=== PATIENT | male | born 1985 | race Caucasian/White ===

== ENCOUNTER 2017-11-18 16:33 | Emergency (ER) | payer OTHER, BC ==
[~2017-11-18] VITALS: Ht 180.3 cm; Wt 84.0 kg
[2017-11-18 16:40] VITALS: Ht 180.3 cm; Wt 84.0 kg
--- NOTE | 2017-11-18 17:11 | DIAGNOSTIC IMAGING REPORT ---
L ANKLE MIN 3 VIEWS ROUTINE CLINICAL HISTORY: twisting injury to foot and ankle, eval fx COMPARISON: None FINDINGS: Alignment of the left ankle is anatomic. Talar dome is intact. There is no acute fracture. IMPRESSION: No acute fracture or dislocation within the left ankle. Electronically signed by: Kristofer Washington M.D. 11/18/2017 5:10 PM Dictated Date/Time: 11/18/2017 5:09 PM
--- NOTE | 2017-11-18 17:14 | DIAGNOSTIC IMAGING REPORT ---
L FOOT MIN 3 VIEWS ROUTINE CLINICAL HISTORY: twisting injury to foot and ankle, eval fx COMPARISON: None FINDINGS: Tarsometatarsal joints are intact. Alignment of the left foot is anatomic. No acute fracture is identified. Joint spaces are preserved. IMPRESSION: No acute fracture or dislocation within the left foot. Electronically signed by: Kristofer Washington M.D. 11/18/2017 5:13 PM Dictated Date/Time: 11/18/2017 5:10 PM
--- NOTE | 2017-11-18 17:20 | EMERGENCY ROOM VISIT NOTE ---
ED Visit Note First contact with patient: 16:47 CHIEF COMPLAINT: Ankle pain HISTORY OF PRESENT ILLNESS: This 32-year-old male patient presents to the emergency department by private vehicle after sustaining an injury to the left ankle and foot with a twisting, inversion motion around 2:30 PM today. 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 The patient complains of pain along the outside of the ankle. The patient also complains of pain across top of the foot. The patient rates the pain as throbbing and 6/10. The patient is able to bear weight on the foot. Constant pain, worse with movement, weight bearing, and the dependent position. No knee pain, the patient is able to move their toes. No numbness or weakness of the foot, no laceration. The patient has not had a previous fracture to this ankle. The patient has taken no medications for the pain. The patient denies any other injury. REVIEW OF SYSTEMS: A 6 system review of systems was completed with positives and pertinent negatives listed in the HPI. ALLERGIES: Reviewed in chart, see below. MEDICATIONS: No current medications. PMH: No significant past medical or surgical history. SOCIAL HISTORY: Lives at home. He is current smoker. PHYSICAL EXAM: Vital Signs: Reviewed Nurse's notes, vital signs stable. GENERAL : Pleasant and cooperative, no acute distress, but appears in pain, well- developed, well-nourished. MENTAL STATUS: Alert, oriented to person place and time, and cooperative. MUSCULOSKELETAL: The left ankle is mildly swollen and tender over the lateral malleolus and anterior aspect of the ankle, but the skin is intact and there is no ligamentous instability. There is no fifth metatarsal tenderness. There is no tenderness over the rest of the foot. There is no calf or tibia/fibular tenderness. There is no visual deformity. The foot and toes are warm and well-perfused. Dorsalis pedis pulse 2+. Sensation to pain and light touch is intact. Capillary refill less than 2 seconds. EMERGENCY DEPARTMENT COURSE: I examined the patient. Differential diagnosis includes ankle sprain/strain, contusion, fracture, dislocation, among others. The patient was offered Motrin or Tylenol for the pain, he declined this. He was given an ice pack. X-rays of the left foot and ankle were reviewed by myself and read by radiology and reveal no acute fracture or dislocation. Gel ankle splint was applied to the ankle under my direction and the position was satisfactory. Neurovascular status was rechecked and intact. The patient was instructed on the use of crutches. Patient was educated regarding continued care at home, follow-up, and return precautions, he verbalized understanding. The patient was discharged home in good condition. Allergies Uncoded Allergies: PCN (Allergy, Mild, 07/30/05) Vital Signs Date Time Temp Pulse Resp B/P (MAP) Pulse Ox O2 Delivery O2 Flow Rate FiO2 11/18/17 18:11 37.0 81 18 139/81 99 11/18/17 16:40 37.0 79 18 142/84 99 Room Air Departure Information Impression Primary Impression: Left ankle sprain Dispostion Home / Self-Care Condition GOOD Referrals No Doctor, Assigned (PCP) Patient Instructions [facility] Additional Instructions You have been evaluated and treated in the emergency department today for your right ankle sprain. Wear the splint to support your ankle. You may remove the splint for showers, but wear it at all other times. Use the crutches to stay completely off of the right foot. Keep the ankle elevated as much as possible to help reduce pain and swelling. You may apply an ice pack over top of the splint for the next 2 days to help reduce pain and swelling as well. You may take ibuprofen 600 mg every 6 hours and/or Tylenol 650 mg every 6 hours as needed for pain. For best results, alternate between ibuprofen and Tylenol every 3-4 hours. Follow-up with your primary care provider or with an orthopedic surgeon in the next 5-7 days if your symptoms are not improving. Please return to the emergency department for severe worsening pain, loss of feeling in the foot or leg, discoloration of the toes (purple, blue, white), or any other concerns. Work Instructions Return To Work: 3 days Problem Qualifiers Primary Impression: Left ankle sprain Encounter type: initial encounter Involved ligament of ankle: unspecified ligament Qualified Codes: S93.402A - Sprain of unspecified ligament of left ankle, initial encounter
[2017-11-18 18:11] VITALS: BP 139/81; PULSE 81; TEMP 37; O2SAT 99
== END 2017-11-18 18:12 | disposition home or self-care (01) ==
LOC: C.EDB 16:34 → C.EDD 18:12
DX: S93.402A Sprain of unspecified ligament of left ankle, initial encounter (principal); Z88.0 Allergy status to penicillin; X50.9XXA Other and unspecified overexertion or strenuous movements or postures, initial encounter; F17.200 Nicotine dependence, unspecified, uncomplicated